=== PATIENT | male | born 1970 | race Hispanic/Latino ===

== ENCOUNTER 2020-11-03 12:08 | Emergency (ER) | payer OTHER, MEDICAID ==
[~2020-11-03] VITALS: Ht 162.6 cm; Wt 88.5 kg
[2020-11-03 12:41] VITALS: BP 112/76
[2020-11-03 12:41] LABS: BASOPHILS % (AUTO) 0.4 % (0.0-5.0); EOSINOPHILS % (AUTO) 1.6 % (0.0-8.0); HEMATOCRIT 42.2 % (42-54); LYMPHOCYTES % (AUTO) 43.7 % (21.0-51.0); MEAN CORPUSCULAR HGB CONC 34.1 g/dL (32.0-36.0); MEAN CORPUSCULAR VOLUME 93.8 fL (79-99); MONOCYTES % (AUTO) 3.8 % (3.0-13.0); NEUTROPHILS % (AUTO) 50.1 % (40.0-77.0); PLATELET COUNT (AUTO) 252 K/uL (130-400); RED CELL DISTRIBUTION WIDTH 13.2 % (11.0-15.5); WHITE BLOOD COUNT (AUTO) 5.1 K/uL (4.8-10.8)
[2020-11-03 12:45] LABS: POTASSIUM 3.8 mmol/L (3.5-5.1)
[2020-11-03] MEDS ORDERED: ASPIRIN 325MG TAB ONE (12:47)
[2020-11-03 12:50] LABS: ALBUMIN 3.8 g/dL (3.5-5.0); BILIRUBIN,TOTAL 0.4 mg/dL (0.2-1.0); TOTAL PROTEIN, SERUM 7.5 g/dL (6.0-8.3)
[2020-11-03 13:00] LABS: INR 0.95 (0.85-1.15); PROTHROMBIN TIME 10.4 SEC (9.6-11.6)
[2020-11-03] MEDS ORDERED: ASPIRIN 325MG EC TAB PO ONE (13:00)
[2020-11-03 13:01] LABS: B-TYPE NATRIURETIC PEPTIDE 10 pg/mL (0-100)
[2020-11-03 13:02] LABS: PARTIAL THROMBOPLASTIN TIME 23.5 SEC (26.3-35.5)
[2020-11-03] MEDS ORDERED: FAMO-136 PO (15:08)
[2020-11-03 15:10] VITALS: BP 126/81
== END 2020-11-03 15:16 | disposition home or self-care (01) ==
LOC: EDH 12:08
DX: R07.89 Other chest pain (principal); K21.9 Gastro-esophageal reflux disease without esophagitis; Z79.82 Long term (current) use of aspirin
CPT/HCPCS: 36415; 71045; 80053; 83880; 84484; 85025; 85610; 85730; 93005